=== PATIENT | male | born 1975 | race African-American/Black ===

== ENCOUNTER 2016-11-30 13:16 | Inpatient (IN) ==
--- NOTE | 2016-11-30 14:10 | EKG Report ---
Stationary ECG Study [facility] ER Test Date: 11/30/2016 1:43:42 PM Pat Name: CABRERA CHAMPAGNE Department: Room: 129 Gender: M Performance Specialist: Radha : 1975 Requested by: Jean Rao Order Number: [id number] Davon MD: LUIS ODONNELL Intervals [place] Rate: 126 P: 71 MI: 162 QRS: -57 QRSD: 96 T: 14 QT: 461 QTc: 536 Interpretive Statements SINUS TACHYCARDIA CONSISTENT WITH PULMONARY DISEASE PATTERN Electronically Signed On 12-02-16 15:14:05 SALVAGE WINDER by LUIS ODONNELL [email or web address]
[2016-11-30] MEDS ORDERED: methylPREDNISolone SOD SUC 125 MG/2 ML VIAL IV STA (14:43)
[2016-11-30] MEDS ORDERED: methylPREDNISolone SOD SUC 125 MG/2 ML VIAL ONE (14:45)
[2016-11-30 14:50] LABS: Basophils # 0.1 10*3/uL (0.0-0.2); Basophils % 0.5 % (0.0-0.8); Eosinophils % 0.1 % (0.00-10.9); Hematocrit 46.6 VOL% (42.0-52.0); Hemoglobin 14.9 GM/DL (14.0-18.0); Immature Granulocytes % 0.8 %; Immature Granulocytes Absolute 0.15 #; Lymphocytes # 1.4 10*3/uL (1.4-4.0); Lymphocytes % 7.6 % (21.2-54.2); Mean Corpuscular Hemoglobin 26 PG (27-34); Mean Platelet Volume 11.5 FL (9.6-12.0); Monocytes # 1.6 10*3/uL (0.11-0.8); Monocytes % 8.4 % (1.7-12.7); Neutrophils # 15.6 10*3/uL (1.4-7.4); Neutrophils % 82.6 % (38.7-73.9); Platelet Count 204 T/CUMM (130-400); Red Blood Count 5.75 MC/CUMM (3.8-5.5); Red Cell Distribution Width 14.2 % (9.3-17.3); White Blood Count 18.9 T/CUMM (4-12)
[2016-11-30] MEDS ORDERED: ALBUTEROL 2.5 MG/3 ML NEB RESP TX SCH (15:00)
[2016-11-30 15:11] LABS: Albumin 3.6 G/DL (3.4-5.0); Bilirubin,Total 0.9 MG/DL (0.2-1.0); Calcium 9.4 MG/DL (8.5-10.1); Osmolality,Calculated 279.3 MOS/KG (273-304); Potassium 4.1 MMOL/L (3.5-5.1); Total Protein 6.9 G/DL (6.4-8.3); Troponin I Only 0.151 NG/ML (0.00-0.045)
[2016-11-30] MEDS ORDERED: cefTRIAXone 2,000 MG in SODIUM CHLORIDE 0.9% 100 ML IV ONE (15:11)
[2016-11-30 15:12] LABS: Apearance,Urine Slightly Hazy (Clear); Bacteria,Urine Occasional /HPF (Few); Bilirubin,Urine Negative (Negative); Blood, Urine Negative (Negative); Glucose,Urine (UA) Negative (Negative); Hyaline Casts,Urine 1 /LPF (0-3); Ketones,Urine Negative (Negative); Mucus,Urine Few /LPF (Occasional); Nitrite,Urine Negative (Negative); Protein,Urine >=500 MG/DL; RBC,Urine 11 /HPF (0-4); Squamous Epithelial Cell,Urine Occasional /HPF (0-10); Urine Color Amber (Yellow); Urine Specific Gravity 1.027 (1.001-1.035); WBC,Urine 1 /HPF (0-6)
--- NOTE | 2016-11-30 15:26 | XRay Report ---
Exam: XR chest 1V portable Indication: Shortness of breath Comparison study: 02/28/2013 Findings: The heart, mediastinum and bony structures are stable from prior. There is been development of patchy opacities within the left upper lobe which are most compatible with developing infectious/inflammatory infiltrate. Minimal left basilar opacities are also suspected but not well visualized. Impression: Left upper lobe pneumonia. Minimal basilar atelectasis is also suspected. A small left pleural effusion is not excluded. PROCEDURE INTERPRETED AT [facility] DEPARTMENT OF RADIOLOGY Final Report Signed by: Andre Ortega
--- NOTE | 2016-11-30 15:31 | Emergency Department Note ---
Rick Leyva Brittany, am scribing for, and in the presence of, Adonis Powers MD 14:47. Gio Leyva Doug C, MD, personally performed the services described in this documentation, ascribed by Livia Cabrera in my presence, and it is both accurate and complete 531 . Arrival - Arrival Chief Complaint: Shortness of Breath Stated Complaint: SOB ED Nursing Triage Note: Pt states that he has been having some cough and congestion with wheezing onset x 1 week - worse over the last few days Mode of Arrival: Wheelchair Limitations: No Limitations Source: Patient, Old Records Reviewed, RN Notes Reviewed Time Seen by Provider: 11/30/16 14:43 - History of Present Illness HPI Narrative: Patient comes in complaining of increasing shortness of breath for last week. Patient states she has not had any chest pain associated but he said very prominent cough. Patient states he has had a subjective fever and chills associated with this as well. He denies any history of asthma or prior respiratory problems. He denies any history of any cardiac problems. He does smoke half pack cigarettes a day and has hypertension. He denies hemoptysis and he denies PND orthopnea. Allergies/Adverse Reactions: Allergies Allergy/AdvReac Type Severity Reaction Status Date / Time No Known Allergies Allergy Verified 11/30/16 13:35 Home Medications: Home Medications Medication Instructions Recorded Confirmed Type HYDROcodone/ACETAMIN 10-325 [Mart 1 tablet PO Q6H #20 tablet 09/07/15 Rx 10-325] Sulfameth/Trimeth 800-160 Tab 1 tablet PO BID #20 tablet 09/07/15 Rx [Bactrim Ds Tab] Review of System - Review of System 12 point system: reviewed and no additional remarkable complaints except as stated - Review of System Constitutional: Present: chills, fever Eyes: Absent: vision change Head/Ears/Nose/Throat: Absent: nasal drainage, sore throat Respiratory: Present: respiratory distress, wheezing Cardiovascular: Absent: chest pain, palpitations Gastrointestinal: Absent: abdominal pain, nausea, vomiting, diarrhea, constipation Genitourinary male: Absent: urgency, dysuria, frequency Musculoskeletal: Absent: arm pain, back pain, leg pain, neck pain Skin: Absent: rash Neurological: Absent: headache Psychiatric: Absent: anxiety, depression Endocrine: Absent: fatigue Hematological/Lymphatic: Absent: easy bleeding, easy bruising Medical,Surgical,& Family Hx - Medical History Respiratory: History of: Obstructive Sleep Apnea Gastrointestinal: History of: GI Problems (umbilical hernia) Musculoskeletal: History of: Musculoskeletal Problems (chronic right hip pain-- needs replacement) Other: History of: Miscellaneous Medical Problems (LLE DVT) - Surgical History Abdominal Surgeries: Surgical HX of: Hernia Repair - Social History Smoking Status: Current every day smoker Frequency of Alcohol Use: None Type of Drug Use: None Exam Vital Signs: Vital Signs Temperature 98.0 F 11/30/16 13:35 Pulse Rate 119 H 11/30/16 15:00 Respiratory Rate 20 11/30/16 15:00 Blood Pressure 183/72 11/30/16 13:35 O2 Sat by Pulse Oximetry 87 L 11/30/16 15:00 - General General appearance: alert, in no apparent distress, obese - Head Head exam: Present: atraumatic, normocephalic - Eye Eye exam: Present: normal appearance, PERRL, EOMI - ENT ENT exam: Present: normal oropharynx, mucous membranes moist, TM's normal bilaterally - Neck Neck exam: Present: normal inspection, full ROM, trachea midline - Chest Chest inspection: Present: normal inspection, symmetric chest wall rise - Respiratory Respiratory exam: Present: wheezes (throughout), other (speaks in short choppy sentences; oxygen saturation of 77%). Absent: normal lung sounds bilaterally - Cardiovascular Cardiovascular exam: Present: regular rate, normal rhythm, normal heart sounds. Absent: murmur, rubs, gallop - Abdominal Exam Abdominal exam: Present: soft, normal bowel sounds, hernia (large periumbilical hernia). Absent: distention, tenderness - Extremities Exam Extremities exam: Present: normal inspection, full ROM - Back Exam Back exam: Present: normal inspection, full ROM - Neurological Exam Neurological exam: Present: alert, oriented X3, CN II-XII intact. Absent: motor sensory deficit - Psychiatric Psychiatric exam: Present: normal affect - Skin Skin exam: Present: warm, dry, intact, normal color Course Course Narrative: Patient's clinical presentation, laboratory and radiographic findings were discussed with Dr. Madelyn Mon. Patient will be seen here in the emergency room and evaluated for admission. Results - Labs CBC & BMP: 11/30/16 14:31 11/30/16 14:31 Lab Results: I have reviewed the patients labs Labs: Laboratory Tests 11/30/16 14:31 WBC 18.9 H RBC 5.75 H Hgb 14.9 Hct 46.6 MCV 81.0 L MCH 26 L MCHC 32.0 Plt Count 204 MPV 11.5 Neut % (Auto) 82.6 H Lymph % (Auto) 7.6 L Mclennan % (Auto) 8.4 Eos % (Auto) 0.1 Baso % (Auto) 0.5 Neut # (Auto) 15.6 H Lymph # (Auto) 1.4 Mclennan # (Auto) 1.6 H Eos # (Auto) 0.0 Baso # (Auto) 0.1 Immature Gran % 0.8 Nucleated RBC % 0.0 Immature Gran # 0.15 Nucleated RBCs # 0.00 - EKG EKG results: sinus rhythm EKG shows: tachycardia (126 bpm) - Diagnostic Findings Procedure: Chest x-ray: report reviewed by me (Left upper lobe pneumonia)
[2016-11-30] MEDS ORDERED: cefTRIAXone 1,000 MG VIAL ONE (15:40)
[2016-11-30] MEDS ORDERED: INFLUENZA VIRUS VACCINE 0.5 ML SYRINGE IM ONE ×2 (17:34→18:00)
[2016-11-30] MEDS ORDERED: PNEUMOCOCCAL VACCINE (23 VALENT) 0.5 ML VIAL IM ONE (17:37)
--- NOTE | 2016-11-30 17:48 | Hospitalist History & Physical ---
Assessment and Plan - Time spent with patient Time spent with patient: Greater than 30 minutes (1) Sepsis Status: Acute Assessment and plan: Secondary to pneumonia. Current Visit: Yes (2) Pneumonia Status: Acute Assessment and plan: We'll start patient on Levaquin. Current Visit: Yes (3) Tachycardia Status: Acute Assessment and plan: We'll check for a pulmonary embolism with CTPE and if that's not sufficient then a VQ scan. We'll place him on therapeutic Lovenox. Check lower extremity ultrasounds. Current Visit: Yes (4) Hypoxemia Status: Acute Assessment and plan: Possible undiagnosed COPD. Initiate BTx and IV steroids. Current Visit: Yes (5) SOB (shortness of breath) Status: Acute Assessment and plan: We'll check a CT of the chest. Current Visit: Yes (6) Venous stasis ulcer Status: Acute Assessment and plan: Wound care consult. Current Visit: Yes (7) NAMRATA (obstructive sleep apnea) Status: Acute Assessment and plan: CPAP at night. Current Visit: Yes History of Present Illness Chief complaint: SOB History of present illness: Mr. Quesada is a 41 year old male with a medical history of morbid obesity who presents with shortness of breath. Patient states he developed shortness of breath last week. He states the shortness of breath progressively got worse and was associated with subjective fever. Denies any orthopnea. He has been having a nonproductive cough. No chest pain nausea vomiting, pain diarrhea or melena.He continues to smoke and smokes about a pack every two days for the last 20 years. Home Medications Medication Instructions Recorded Confirmed Type No Known Home Medications [No 11/30/16 11/30/16 History Known Home Medications] Allergies Allergy/AdvReac Type Severity Reaction Status Date / Time No Known Allergies Allergy Verified 11/30/16 13:35 Medical,Surgical,& Family Hx - Medical History Respiratory: History of: Obstructive Sleep Apnea (wears cpap at home) Gastrointestinal: History of: GI Problems (umbilical hernia) Musculoskeletal: History of: Musculoskeletal Problems (chronic right hip pain-- needs replacement) Hematology: History of: Clotting Problems (states he was on blood thinners in past; states thinks it was for blood elian) Other: History of: Miscellaneous Medical Problems (LLE DVT) - Surgical History Thoracic Surgeries: Patient denies;: Organ Transplant HEENT Surgeries: Surgical HX of: Tonsilectomy & Adenoidectomy Abdominal Surgeries: Surgical HX of: Hernia Repair - Social History Smoking Status: Current every day smoker Frequency of Alcohol Use: None Type of Drug Use: None Exam - Constitutional Vitals: Period Temp Pulse Resp BP Sys/Martinez Pulse Ox Last 24 Hr 98 F-98.4 F 110-136 20-24 136-183/72-107 87-98 General appearance: no acute distress, morbidly obese - Head Head exam: Present: normocephalic, atraumatic - Eye Eye exam: Present: EOMI Pupils: Present: NAYE - ENT ENT exam: Present: normal exam - Neck Neck exam: Present: normal inspection - Respiratory Respiratory exam: Present: clear to auscultation bilaterally, decreased breath sounds. Absent: rhonchi, wheezes (mild bilateral wheezing) - Cardiovascular Cardiovascular exam: Present: regular rate and rhythm. Absent: gallop, rubs, systolic murmur - GI/Abdominal GI/Abdominal exam: Present: normal bowel sounds, soft. Absent: distended, firm , guarding, tenderness, rebound - Extremities Exam Extremities exam: Present: edema, other (bilateral edema with venous stasis ulcer of the left lower extremity.). Absent: calf tenderness Results - Labs CBC & BMP: 11/30/16 14:31 11/30/16 14:31 Lab Results: I have reviewed the past 24 hour labs
[2016-11-30] MEDS ORDERED: LEVOFLOXACIN INJ 750 MG in PREMIX 1 EACH IV ONE (17:56)
[2016-11-30] MEDS ORDERED: ALBUTEROL/IPRATROPIUM 3 ML NEB RESP TX PRN (18:00)
--- NOTE | 2016-11-30 18:34 | Ultrasound Report ---
Indication: Bilateral lower extremity swelling Duplex scan of the bilateral lower extremity veins Technique: Duplex scan of the bilateral lower extremity veins using B-mode/grayscale imaging and Doppler spectral analysis and color flow Findings: Major venous structures of the bilateral lower extremity demonstrate a normal course and caliber. There is no evidence of deep vein thrombosis. No abnormal intrinsic echogenic lesions are demonstrated in the scanned blood vessels. Veins demonstrate good compressibility with normal color flow study and spectral analysis. Impression: Unremarkable duplex imaging of the bilateral lower extremity veins. No evidence of DVT PROCEDURE INTERPRETED AT [facility] DEPARTMENT OF RADIOLOGY Final Report Signed by: Andre Ortega
[2016-11-30] MEDS: ENOXAPARIN 150 MG/ML SYRINGE SUBCUT SCH (19:21)
--- NOTE | 2016-11-30 20:12 | CT Report ---
Exam: CT chest PE study The total DLP is 148 mGy*cm. Date: 11/30/2016 5:27 PM Indication: Tachycardia, shortness of breath Comparison: CT chest with contrast 02/28/2013 Technical: Images were obtained from the thoracic inlet through the lung bases with 80 cc of Omnipaque 350 with axial and coronal imaging available for review. Findings: Pulmonary arteries: Study is severely limited given contrast bolus timing. However, there is suggestion of at least filling defects within the bilateral pulmonary arteries at the level of the segmental branches to both lower lobes (axial image 80). Central pulmonary vessels appear patent and not significantly enlarged. There is no suggestion of significant right heart strain at this time. Distal segmental/subsegmental pulmonary arteries are poorly evaluated due to contrast bolus timing and/or patient motion. Mediastinum/vessels/lymph nodes: Heart and great vessels appear unremarkable. There is no evidence of pericardial effusion. The aorta and great vessels appear widely patent. There is no adenopathy in the chest. Lungs: Multifocal areas of consolidation within the left upper lung are compatible with pneumonia. Minimal patchy airspace opacities are also noted within the left lung base, although consistent with pneumonia. Central airways are patent. There is no pneumothorax or pleural effusion. Thyroid: Thyroid gland appears within normal limits. No acute abnormality is identified within the visualized upper abdomen. BONES: No acute or suspicious appearing osseous abnormalities are identified. Impression: 1. Severely limited study given contrast bolus timing. However, bilateral subsegmental pulmonary emboli are suspected in both lower lobes. No definite findings to suggest acute right heart strain at this time. 2. Findings are consistent with multifocal pneumonia within the left upper lobe and left lung base. Continued close clinical imaging follow-up is recommended. Critical findings discussed with the patient's nurse Jason in the ICU at 8:00 PM on the day of the examination. PROCEDURE INTERPRETED AT [facility] DEPARTMENT OF RADIOLOGY Final Report Signed by: Andre Ortega
[2016-11-30] MEDS: methylPREDNISolone SOD SUC 125 MG/2 ML VIAL IV SCH (21:00)
[2016-12-01] MEDS: methylPREDNISolone SOD SUC 125 MG/2 ML VIAL IV SCH ×4 (03:14→21:05)
[2016-12-01 04:51] LABS: Basophils % 0.1 % (0.0-0.8); Hematocrit 45.7 VOL% (42.0-52.0); Hemoglobin 14.7 GM/DL (14.0-18.0); Immature Granulocytes % 0.6 %; Immature Granulocytes Absolute 0.09 #; Mean Corpuscular HGB Conc 32.2 GM/DL (32-36); Mean Corpuscular Hemoglobin 26 PG (27-34); Mean Corpuscular Volume 80.5 FL (87-102); Mean Platelet Volume 11.3 FL (9.6-12.0); Monocytes # 0.6 10*3/uL (0.11-0.8); Monocytes % 4.3 % (1.7-12.7); Neutrophils # 12.2 10*3/uL (1.4-7.4); Platelet Count 204 T/CUMM (130-400); Red Blood Count 5.68 MC/CUMM (3.8-5.5); Red Cell Distribution Width 14.1 % (9.3-17.3); White Blood Count 13.9 T/CUMM (4-12)
[2016-12-01 05:20] LABS: Calcium 9.1 MG/DL (8.5-10.1); Osmolality,Calculated 281.3 MOS/KG (273-304); Potassium 4.3 MMOL/L (3.5-5.1)
[2016-12-01] MEDS: ENOXAPARIN 150 MG/ML SYRINGE SUBCUT SCH (05:28)
--- NOTE | 2016-12-01 08:30 | Hospitalist Progress Note ---
Assessment and Plan - Time spent with patient Time spent with patient: Greater than 30 minutes (1) Pulmonary embolism Status: Acute Assessment and plan: Continue Lovenox. Negative LE US. History of DVT on Xarelto. Will switch to Xarelto. Current Visit: Yes (2) Sepsis Status: Acute Assessment and plan: Secondary to pneumonia. Improving, continue antibiotics. Current Visit: Yes (3) Pneumonia Status: Acute Assessment and plan: We'll start patient on Levaquin. Current Visit: Yes (4) Venous stasis ulcer Status: Acute Assessment and plan: Wound care consult. Current Visit: Yes (5) NAMRATA (obstructive sleep apnea) Status: Acute Assessment and plan: CPAP at night. Current Visit: Yes Hospitalist: Subjective Interval history: Has no complaints this morning, no overnight events. Exam - Constitutional Vitals: Period Temp Pulse Resp BP Sys/Martinez Pulse Ox Last 24 Hr 97.2 F-98.4 F 98-136 17-37 81-183/58-108 80-98 General appearance: no acute distress, morbidly obese - Head Head exam: Present: normocephalic, atraumatic - Eye Eye exam: Present: EOMI Pupils: Present: NAYE - ENT ENT exam: Present: normal exam - Neck Neck exam: Present: normal inspection - Respiratory Respiratory exam: Present: clear to auscultation bilaterally, prolonged expiratory phase. Absent: rhonchi, wheezes - Cardiovascular Cardiovascular exam: Present: tachycardia. Absent: gallop, rubs, systolic murmur - GI/Abdominal GI/Abdominal exam: Present: normal bowel sounds, soft. Absent: distended, firm , guarding, tenderness, rebound - Extremities Exam Extremities exam: Present: edema. Absent: calf tenderness Results - Labs CBC & BMP: 12/01/16 04:10 12/01/16 04:10 Lab Results: I have reviewed the past 24 hour labs
[2016-12-01] MEDS: RIVAROXABAN 15 MG TABLET PO SCH ×2 (10:06→16:31)
[2016-12-01] MEDS ORDERED: LABETALOL 20 MG/4 ML SYRINGE IV PRN (16:19)
[2016-12-01] MEDS: LEVOFLOXACIN INJ 750 MG in PREMIX 1 EACH IV SCH (21:10)
[2016-12-02] MEDS: methylPREDNISolone SOD SUC 125 MG/2 ML VIAL IV SCH (03:25)
[2016-12-02] MEDS: methylPREDNISolone SOD SUC 40 MG/1 ML VIAL IV SCH ×3 (09:00→20:57)
[2016-12-02] MEDS: RIVAROXABAN 15 MG TABLET PO SCH ×2 (09:00→15:59)
--- NOTE | 2016-12-02 13:37 | Hospitalist Progress Note ---
Assessment and Plan - Time spent with patient Time spent with patient: Greater than 30 minutes (1) Pulmonary embolism Status: Acute Assessment and plan: Continue Xarelto. May require lifelong anticoagulation due to 2nd unprovoked clot. Current Visit: Yes (2) Sepsis Status: Acute Assessment and plan: Resolved. Current Visit: Yes (3) Pneumonia Status: Acute Assessment and plan: We'll start patient on Levaquin. Current Visit: Yes (4) Venous stasis ulcer Status: Acute Assessment and plan: Wound care consult. Current Visit: Yes (5) NAMRATA (obstructive sleep apnea) Status: Acute Assessment and plan: CPAP at night. Current Visit: Yes (6) Weakness Status: Acute Assessment and plan: SW, PT/OT. May need swingbed placement. Current Visit: Yes Hospitalist: Subjective Interval history: Complains of being weak. No chest pain, SOB with exertion is much improved. Exam - Constitutional Vitals: Period Temp Pulse Resp BP Sys/Martinez Pulse Ox Last 24 Hr 97.9 F-98.0 F 90-102 18-20 120-161/63-101 91-95 General appearance: no acute distress, morbidly obese - Head Head exam: Present: normocephalic, atraumatic - Eye Eye exam: Present: EOMI Pupils: Present: NAYE - ENT ENT exam: Present: normal exam - Neck Neck exam: Present: normal inspection - Respiratory Respiratory exam: Present: clear to auscultation bilaterally. Absent: rhonchi, wheezes - Cardiovascular Cardiovascular exam: Present: regular rate and rhythm. Absent: gallop, rubs, systolic murmur - GI/Abdominal GI/Abdominal exam: Present: normal bowel sounds, soft. Absent: distended, firm , guarding, tenderness, rebound - Extremities Exam Extremities exam: Present: normal inspection. Absent: calf tenderness, edema Results - Labs CBC & BMP: 12/01/16 04:10 12/01/16 04:10 Lab Results: I have reviewed the past 24 hour labs
[2016-12-02] MEDS: LEVOFLOXACIN INJ 750 MG in PREMIX 1 EACH IV SCH (20:57)
[2016-12-03] MEDS: methylPREDNISolone SOD SUC 40 MG/1 ML VIAL IV SCH ×4 (02:47→17:15)
[2016-12-03 05:52] LABS: Basophils % 0.1 % (0.0-0.8); Hemoglobin 14.2 GM/DL (14.0-18.0); Immature Granulocytes Absolute 0.14 #; Lymphocytes # 0.9 10*3/uL (1.4-4.0); Lymphocytes % 6.1 % (21.2-54.2); Mean Corpuscular HGB Conc 31.6 GM/DL (32-36); Mean Corpuscular Hemoglobin 26 PG (27-34); Mean Corpuscular Volume 82.9 FL (87-102); Mean Platelet Volume 11.2 FL (9.6-12.0); Monocytes # 0.9 10*3/uL (0.11-0.8); Monocytes % 5.9 % (1.7-12.7); NRBC # 0.02 10*3/uL; Neutrophils # 12.7 10*3/uL (1.4-7.4); Neutrophils % 86.9 % (38.7-73.9); Platelet Count 233 T/CUMM (130-400); Red Blood Count 5.43 MC/CUMM (3.8-5.5); Red Cell Distribution Width 14.3 % (9.3-17.3); White Blood Count 14.6 T/CUMM (4-12)
[2016-12-03 06:19] LABS: Calcium 8.9 MG/DL (8.5-10.1); Osmolality,Calculated 283.3 MOS/KG (273-304); Potassium 4.5 MMOL/L (3.5-5.1)
[2016-12-03] MEDS: RIVAROXABAN 15 MG TABLET PO SCH ×2 (08:57→17:14)
--- NOTE | 2016-12-03 17:39 | Hospitalist Progress Note ---
Assessment and Plan - Time spent with patient Time spent with patient: Greater than 30 minutes (1) Pulmonary embolism Status: Acute Assessment and plan: Continue Xarelto. May require lifelong anticoagulation due to 2nd unprovoked clot. Current Visit: Yes (2) Pneumonia Status: Acute Assessment and plan: Continue Levaquin. Current Visit: Yes (3) Venous stasis ulcer Status: Acute Assessment and plan: Wound care consult. Current Visit: Yes (4) NAMRATA (obstructive sleep apnea) Status: Acute Assessment and plan: CPAP at night. Current Visit: Yes (5) Weakness Status: Acute Assessment and plan: SW, PT/OT. May need swingbed placement. Current Visit: Yes Hospitalist: Subjective Interval history: No complaints, no overnight events. States his SOB is improving. Exam - Constitutional Vitals: Period Temp Pulse Resp BP Sys/Martinez Pulse Ox Last 24 Hr 97.5 F-97.8 F 75-98 16-20 127-161/73-107 94-98 General appearance: no acute distress, morbidly obese - Head Head exam: Present: normocephalic, atraumatic - Eye Eye exam: Present: EOMI Pupils: Present: NAYE - ENT ENT exam: Present: normal exam - Neck Neck exam: Present: normal inspection - Respiratory Respiratory exam: Present: clear to auscultation bilaterally. Absent: rhonchi, wheezes - Cardiovascular Cardiovascular exam: Present: regular rate and rhythm. Absent: gallop, rubs, systolic murmur - GI/Abdominal GI/Abdominal exam: Present: normal bowel sounds, soft. Absent: distended, firm , guarding, tenderness, rebound - Extremities Exam Extremities exam: Present: normal inspection. Absent: calf tenderness, edema Results - Labs CBC & BMP: 12/03/16 05:36 12/03/16 05:36 Lab Results: I have reviewed the past 24 hour labs
[2016-12-03] MEDS: LEVOFLOXACIN INJ 750 MG in PREMIX 1 EACH IV SCH (20:36)
[2016-12-04] MEDS: methylPREDNISolone SOD SUC 40 MG/1 ML VIAL IV SCH (04:35)
[2016-12-04] MEDS: RIVAROXABAN 15 MG TABLET PO SCH (08:23)
--- NOTE | 2016-12-04 10:21 | Discharge Summary ---
Hospital Course - Hospital Course Hospital Course: Mr. Quesada presented with shortness of breath. He was admitted to the intensive care unit for observation. He had sepsis secondary to pneumonia with COPD exacerbation. He was initiated on antibiotics and IV steroids and breathing treatments. CT PE was chest confirmed pneumonia in addition to subsegmental bilateral pulmonary embolisms. Lower extremity ultrasound was negative. He was initiated on weight-based Lovenox and transition to Xarelto. Given that this is his second unprovoked clot, the first being a DVT, the patient may require lifelong anticoagulation. In the meantime he is prescribed about 6 months worth of Xarelto. He is also given a work excuse. By discharge he had met maximum benefit of hospitalization. - Time spent with patient Time with patient DS: Greater than 30 minutes Diagnosis - Discharge Diagnosis (1) Pulmonary embolism Status: Acute (2) Pneumonia Status: Acute (3) Venous stasis ulcer Status: Acute (4) NAMRATA (obstructive sleep apnea) Status: Acute (5) Weakness Status: Acute Discharge Plan - Discharge Data Disposition: Disch To Home/Self Care Condition at Discharge: Stable Discharge Diet: advance to your usual diet - Discharge Medications New Levofloxacin Tab [Levaquin Tab] 750 mg PO DAILY #4 tablet Rivaroxaban [Xarelto] 15 mg PO BID W/MEALS #38 tablet Rivaroxaban [Xarelto] 20 mg PO DAILY W/BREAKFAST #30 tablet - Follow Up or Referral - Forms/Instructions Forms: Acute Care Work/School Release Exam - Constitutional Vitals: Period Temp Pulse Resp BP Sys/Martinez Pulse Ox Last 24 Hr 97.5 F-98.3 F 75-98 18-20 118-134/73-88 92-97 General appearance: no acute distress, morbidly obese - Head Head exam: Present: normal inspection, normocephalic, atraumatic - Eye Eye exam: Present: EOMI Pupils: Present: NAYE - ENT ENT exam: Present: normal exam - Neck Neck exam: Present: normal inspection - Respiratory Respiratory exam: Present: clear to auscultation bilaterally - Cardiovascular Cardiovascular exam: Present: regular rate and rhythm - GI/Abdominal GI/Abdominal exam: Present: normal bowel sounds. Absent: ascites, distended - Extremities Exam Extremities exam: Present: edema Discharge Results Labs on day of discharge: Preliminary micro results at discharge 11/30/16 15:55 Blood Culture - Preliminary Blood No growth at 3 days DS: Provider Date of admission: 11/30/16 15:37 Primary care physician: . No PCP Attending physician on admission: Safia Hunt MD Consults: 11/30/16 17:34 Consult to Wound Care - [place] [CONS] Routine Reason for Wound Care: Wound Care Management 11/30/16 18:04 Consult to Pharmacy [CONS] Routine Reason for Pharmacy Consult: Adjust Meds Renal Funct 12/03/16 08:19 Consult to Case Mgmt/Social Srvs [CONS] Routine Reason for Case Mgmt/Social Srvs: Swingbed/SNF/Alf Consult to Occupational Therapy [CONS] Routine Reason for Occupational Therapy: Evaluate and Treat PT [Consult to Physical Therapy] [CONS] Routine Reason for Physical Therapy: Evaluate and Treat Discharging clinician: Safia Hunt MD Expected date of discharge: 12/04/16
[2016-12-04] MEDS ORDERED: PNEUMOCOCCAL VACCINE (23 VALENT) 0.5 ML VIAL IM ONE (11:45)
[2016-12-04] MEDS ORDERED: INFLUENZA VIRUS VACCINE 0.5 ML SYRINGE IM ONE (11:46)
[2016-12-04 15:19] VITALS: BP 135/74
== END 2016-12-04 13:00 | disposition home or self-care (01) | DRG 871 ==
LOC: N.ED 13:16 → N.EDINP 15:37 → N.CC 17:00 → N.2E 17:10
PROVIDERS: ADMIT Internal Medicine; ATTEND Internal Medicine

== ENCOUNTER 2020-07-15 21:33 | Inpatient (IN) ==
[2020-07-15 22:05] LABS: Basophils # 0.1 10*3/uL (0.0-0.2); Basophils % 0.6 % (0.0-0.8); Eosinophils # 0.1 10*3/uL (0.0-0.87); Hematocrit 48.1 VOL% (42.0-52.0); Hemoglobin 15.3 GM/DL (14.0-18.0); Immature Granulocytes % 0.6 %; Immature Granulocytes Absolute 0.08 #; Lymphocytes # 2.2 10*3/uL (1.4-4.0); Lymphocytes % 17.8 % (21.2-54.2); Mean Corpuscular HGB Conc 31.8 GM/DL (32-36); Mean Corpuscular Volume 81.1 FL (87-102); Mean Platelet Volume 11.1 FL (9.6-12.0); Monocytes % 8.5 % (1.7-12.7); Neutrophils % 71.5 % (38.7-73.9); Platelet Count 234 T/CUMM (130-400); Red Blood Count 5.93 MC/CUMM (3.8-5.5); Red Cell Distribution Width 14.6 % (9.3-17.3); White Blood Count 12.4 T/CUMM (4-12)
[2020-07-15] MEDS ORDERED: methylPREDNISolone SOD SUC 125 MG/2 ML VIAL IV STA (22:12)
[2020-07-15 22:25] LABS: PT Patient Result 10.7 SECS (9.8-11.9); Partial Thromboplastin Time 31.1 SECS (23.9-33.8)
[2020-07-15 22:36] LABS: Albumin 3.5 G/DL (3.4-5.0); Bilirubin,Total 0.5 MG/DL (0.2-1.0); Calcium 9.1 MG/DL (8.5-10.1); Osmolality,Calculated 275.5 MOS/KG (273-304); Total Protein 7.8 G/DL (6.4-8.3)
[2020-07-15 23:00] LABS: ABG Base Excess -0.2 MMOL/L (-2.5-2.5); ABG Oxygen Saturation 96.1 % (95-100); ABG PCO2 37.7 MM HG (35-48); ABG PH 7.421 (7.35-7.45); ABG PO2 83.3 MM HG (80-95); ABG TCO2 25.1 MMOL/L (23-27)
[2020-07-15] MEDS: ALBUTEROL INHALER 18 GM INH SCH ×3 (23:01→23:46)
[2020-07-15] MEDS ORDERED: ENOXAPARIN 30 MG/0.3 ML SYRINGE SUBCUT STA (23:03)
[2020-07-15] MEDS ORDERED: ENOXAPARIN 100 MG/ML SYRINGE SUBCUT ONE (23:15)
[2020-07-16] MEDS ORDERED: LEVOFLOXACIN INJ 500 MG in PREMIX 1 EACH IV STA (00:09)
[2020-07-16] MEDS ORDERED: GLUCAGON 1 MG VIAL IM PRN (00:42)
[2020-07-16] MEDS ORDERED: DEXTROSE 50% 25 GM/50 ML VIAL IV PRN (00:42)
[2020-07-16] MEDS ORDERED: ACETAMINOPHEN 325 MG TABLET PO PRN (00:42)
[2020-07-16] MEDS ORDERED: ONDANSETRON 4 MG/2 ML VIAL IV PRN (00:42)
[2020-07-16] MEDS ORDERED: ALBUTEROL/IPRATROPIUM 3 ML NEB RESP TX SCH (01:00)
[2020-07-16 07:43] LABS: Basophils % 0.2 % (0.0-0.8); Hemoglobin 15.1 GM/DL (14.0-18.0); Immature Granulocytes % 1.2 %; Immature Granulocytes Absolute 0.11 #; Lymphocytes # 0.6 10*3/uL (1.4-4.0); Lymphocytes % 6.2 % (21.2-54.2); Mean Corpuscular HGB Conc 31.5 GM/DL (32-36); Mean Corpuscular Volume 81.2 FL (87-102); Mean Platelet Volume 11.3 FL (9.6-12.0); Neutrophils % 90.4 % (38.7-73.9); Platelet Count 235 T/CUMM (130-400); Red Blood Count 5.91 MC/CUMM (3.8-5.5); Red Cell Distribution Width 14.7 % (9.3-17.3); White Blood Count 9.6 T/CUMM (4-12)
[2020-07-16 08:26] LABS: Alanine Aminotransferase 25 U/L (16-61); Albumin 3.3 G/DL (3.4-5.0); Alkaline Phosphatase 109 U/L (45-117); Aspartate Amino Transferase 19 U/L (0-37); Bilirubin,Total < 0.39 MG/DL (0.2-1.0); Blood Urea Nitrogen 10 MG/DL (7-18); Calcium 9.1 MG/DL (8.5-10.1); Estimated Glom Filtration Rate 252 ML/MIN; Glucose 108 MG/DL (74-106); Osmolality,Calculated 274.7 MOS/KG (273-304); Total Protein 6.9 G/DL (6.4-8.3)
[2020-07-16] MEDS ORDERED: PANTOPRAZOLE 40 MG TABLET PO SCH (09:00)
[2020-07-16] MEDS: APIXABAN 5 MG TABLET PO SCH ×2 (09:14→20:04)
[2020-07-16] MEDS: NICOTINE 7 MG/24 HR PATCH TRANSDERM SCH (15:06)
[2020-07-16] MEDS: cefTRIAXone 1,000 MG in SYRINGE 1 EACH IV SCH (20:03)
[2020-07-16] MEDS: ALBUTEROL/IPRATROPIUM 3 ML NEB RESP TX PRN (20:40)
[2020-07-16] MEDS ORDERED: LEVOFLOXACIN INJ 750 MG in PREMIX 1 EACH IV SCH (21:00)
[2020-07-17 06:29] LABS: Basophils # 0.1 10*3/uL (0.0-0.2); Basophils % 0.5 % (0.0-0.8); Eosinophils # 0.1 10*3/uL (0.0-0.87); Eosinophils % 0.5 % (0.00-10.9); Hemoglobin 14.9 GM/DL (14.0-18.0); Immature Granulocytes % 1.1 %; Immature Granulocytes Absolute 0.13 #; Lymphocytes # 2.5 10*3/uL (1.4-4.0); Lymphocytes % 20.5 % (21.2-54.2); Mean Corpuscular HGB Conc 31.7 GM/DL (32-36); Mean Corpuscular Volume 80.3 FL (87-102); Mean Platelet Volume 11.2 FL (9.6-12.0); Monocytes % 8.6 % (1.7-12.7); Neutrophils % 68.8 % (38.7-73.9); Platelet Count 202 T/CUMM (130-400); Red Blood Count 5.85 MC/CUMM (3.8-5.5); Red Cell Distribution Width 14.6 % (9.3-17.3); White Blood Count 12.3 T/CUMM (4-12)
[2020-07-17 06:49] LABS: Calcium 9.3 MG/DL (8.5-10.1); Osmolality,Calculated 272.8 MOS/KG (273-304)
[2020-07-17] MEDS: NICOTINE 7 MG/24 HR PATCH TRANSDERM SCH (08:46)
[2020-07-17] MEDS: APIXABAN 5 MG TABLET PO SCH ×2 (08:47→20:43)
[2020-07-17] MEDS ORDERED: ALUM/MAG/SIMETH/LIDO VISC 1:1 30 ML BOTTLE PO ONE (11:06)
[2020-07-17] MEDS: ALBUTEROL/IPRATROPIUM 3 ML NEB RESP TX PRN (11:15)
[2020-07-17] MEDS ORDERED: CALCIUM CARBONATE CHEW 500 MG TABLET PO PRN (17:23)
[2020-07-17] MEDS ORDERED: MAGNESIUM HYDROXIDE SUSP 30 ML UDCUP PO PRN (17:24)
[2020-07-17] MEDS: POLYETHYLENE GLYCOL POWDER 17 GM PACK PO SCH (17:40)
[2020-07-17] MEDS: ALBUTEROL/IPRATROPIUM 3 ML NEB RESP TX SCH (19:30)
[2020-07-17] MEDS: cefTRIAXone 1,000 MG in SYRINGE 1 EACH IV SCH (20:38)
[2020-07-17] MEDS ORDERED: CLORAZEPATE 3.75 MG TABLET PO PRN ×2 (21:19→21:20)
[2020-07-18] MEDS: ALBUTEROL/IPRATROPIUM 3 ML NEB RESP TX SCH ×3 (00:57→13:52)
[2020-07-18 04:58] LABS: Basophils # 0.1 10*3/uL (0.0-0.2); Basophils % 0.5 % (0.0-0.8); Eosinophils # 0.1 10*3/uL (0.0-0.87); Eosinophils % 0.7 % (0.00-10.9); Hematocrit 45.1 VOL% (42.0-52.0); Hemoglobin 14.1 GM/DL (14.0-18.0); Immature Granulocytes Absolute 0.11 #; Lymphocytes % 17.3 % (21.2-54.2); Mean Corpuscular HGB Conc 31.3 GM/DL (32-36); Mean Corpuscular Volume 81.6 FL (87-102); Mean Platelet Volume 10.8 FL (9.6-12.0); Monocytes % 10.6 % (1.7-12.7); Neutrophils % 69.9 % (38.7-73.9); Platelet Count 220 T/CUMM (130-400); Red Blood Count 5.53 MC/CUMM (3.8-5.5); Red Cell Distribution Width 14.6 % (9.3-17.3); White Blood Count 11.4 T/CUMM (4-12)
[2020-07-18 05:16] LABS: Calcium 8.8 MG/DL (8.5-10.1); Osmolality,Calculated 276.5 MOS/KG (273-304)
[2020-07-18] MEDS: POLYETHYLENE GLYCOL POWDER 17 GM PACK PO SCH (09:14)
[2020-07-18] MEDS: NICOTINE 7 MG/24 HR PATCH TRANSDERM SCH (09:15)
[2020-07-18] MEDS: APIXABAN 5 MG TABLET PO SCH (09:15)
[2020-07-18 11:59] VITALS: BP 124/64
[2020-07-18] MEDS ORDERED: LACTULOSE 20 GM/30 ML UDCUP PO ONE (14:20)
[2020-07-23] MEDS ORDERED: APIXABAN 5 MG TABLET PO SCH (09:00)
== END 2020-07-18 16:08 | disposition home or self-care (01) | DRG 175 ==
LOC: N.ED 21:33 → N.EDINP 07-16 00:42 → N.5E 07-16 01:28
PROVIDERS: ADMIT Internal Medicine; ATTEND Internal Medicine